=== PATIENT | male | born 1980 | race Caucasian/White ===

== ENCOUNTER → 2019-10-04 08:19 | Outpatient (BNVA) | payer OTHER, SELFPAY | PROVIDERS: Referring Provider Speech-Language Pathologist; Visit Provider Anesthesiology Pain Medicine | DX: M51.36 Other intervertebral disc degeneration, lumbar region (principal); M47.816 Spondylosis without myelopathy or radiculopathy, lumbar region; M62.830 Muscle spasm of back; Z79.891 Long term (current) use of opiate analgesic | CPT/HCPCS: 99204; 99999 ==

== ENCOUNTER → 2019-10-06 12:08 | Outpatient (BNVA) | payer OTHER, SELFPAY | PROVIDERS: Visit Provider Anesthesiology Pain Medicine | DX: M47.816 Spondylosis without myelopathy or radiculopathy, lumbar region (principal) | CPT/HCPCS: 64493; 64494; 64495; 64520; J2001; J3490 ==

== ENCOUNTER → 2019-10-25 10:56 | Outpatient (BNVA) | payer OTHER, SELFPAY | PROVIDERS: Visit Provider Anesthesiology Pain Medicine | DX: M51.36 Other intervertebral disc degeneration, lumbar region (principal); M47.816 Spondylosis without myelopathy or radiculopathy, lumbar region; M62.830 Muscle spasm of back; Z79.891 Long term (current) use of opiate analgesic | CPT/HCPCS: 99213; 99214 ==

== ENCOUNTER → 2019-12-05 12:20 | Outpatient (BNVA) | payer OTHER, SELFPAY | PROVIDERS: Visit Provider Anesthesiology Pain Medicine | DX: M47.816 Spondylosis without myelopathy or radiculopathy, lumbar region (principal); M54.9 Dorsalgia, unspecified | CPT/HCPCS: 64635; 64636; 77003; J1030; J2001 ==

== ENCOUNTER → 2019-12-21 13:32 | Outpatient (BNVA) | payer OTHER, SELFPAY | PROVIDERS: Visit Provider Anesthesiology Pain Medicine | DX: M51.36 Other intervertebral disc degeneration, lumbar region (principal); M47.816 Spondylosis without myelopathy or radiculopathy, lumbar region; M54.9 Dorsalgia, unspecified; M62.830 Muscle spasm of back; Z79.891 Long term (current) use of opiate analgesic | CPT/HCPCS: 99213 ==

== ENCOUNTER → 2019-12-30 14:12 | Outpatient (BNVA) | payer OTHER, SELFPAY | PROVIDERS: Visit Provider Anesthesiology Pain Medicine | DX: M47.816 Spondylosis without myelopathy or radiculopathy, lumbar region (principal); M54.9 Dorsalgia, unspecified; Z79.891 Long term (current) use of opiate analgesic | CPT/HCPCS: 64635; 64636; 77003; J1030; J2001 ==

== ENCOUNTER → 2020-01-13 14:50 | Outpatient (BNVA) | payer OTHER, SELFPAY | PROVIDERS: Visit Provider Anesthesiology Pain Medicine | DX: M47.816 Spondylosis without myelopathy or radiculopathy, lumbar region (principal); M51.36 Other intervertebral disc degeneration, lumbar region; M54.9 Dorsalgia, unspecified; M62.830 Muscle spasm of back; F17.210 Nicotine dependence, cigarettes, uncomplicated; Z79.891 Long term (current) use of opiate analgesic | CPT/HCPCS: 99213 ==

== ENCOUNTER 2020-12-10 07:14 | Outpatient (CLI) | payer OTHER, SELFPAY ==
--- NOTE | 2020-12-10 07:00 | XRR_ITS ---
PROCEDURE INFORMATION: Exam: XR Abdomen Exam date and time: 12/10/2020 7:22 AM Age: 40 years old Clinical indication: Condition or disease; Kidney or ureter condition; Calculus (stone) in kidney; Prior surgery; Surgery type: Hernia; Additional info: N20.0 - calculus of kidney TECHNIQUE: Imaging protocol: XR of the abdomen. Views: Frontal supine view of the abdomen. 1 View. COMPARISON: CT abdomen pelvis con [id number] 12/02/2020 11:45 PM FINDINGS: Gastrointestinal tract: Normal. No bowel dilation. Organs: Right UVJ stone identified on abdomen CT, is not clearly visualized in the current examination. Bones/joints: Unremarkable. XR/XR KUB [id number] IMPRESSION: Right UVJ stone identified on abdomen CT in is not seen in the current examination.
== END 2020-12-10 07:15 | disposition home or self-care (01) ==
PROVIDERS: PCP Nurse Practitioner Family; Visit Provider Urology
DX: N20.0 Calculus of kidney (principal)
CPT/HCPCS: 74018; 81003; 82365; 88300

== ENCOUNTER 2021-10-29 08:08 | Outpatient (CLI) | payer OTHER, SELFPAY ==
--- NOTE | 2021-10-29 08:00 | USCV_ITS ---
Real Simpson Age: 41 Gender: M : 1980 Exam Date: 10/29/2021 08:34 Ordering Phys: Nathaly Morales MD ([email or web address]) Technologist: Graham Bennett Exam Location: [facility] [place] Indication: Dizziness and gidiness BP: 128 / 78 HR: 57 Rhythm: Sinus Technical Quality: Adequate MEASUREMENTS (Male / Female) Normal Values 2D ECHO LV Diastolic Diameter PLAX 5.0 cm 4.2 - 5.9 / 3.9 - 5.3 cm LV Systolic Diameter PLAX 3.8 cm IVS Diastolic Thickness 1.1 cm 0.6 - 1.0 / 0.6 - 0.9 cm IVS Systolic Thickness 1.4 cm LVPW Diastolic Thickness 1.2 cm 0.6 - 1.0 / 0.6 - 0.9 cm LVPW Systolic Thickness 1.8 cm LVOT Diameter 2.3 cm LV Ejection Fraction 2D Teich 48.0 % LV Ejection Fraction MOD 2C 53.1 % LV Ejection Fraction 2C AL 54.9 % LA Diameter 3.3 cm LA Width 3.6 cm LA Height 3.7 cm RA Width 4.2 cm RA Height 4.2 cm Aorta at Sinotubular Diameter 2.6 cm M-MODE Aortic Annulus Diameter 3.6 cm LA Ao Ratio MM 0.8 MV E Point Septal Separation 1.1 cm DOPPLER AV Peak Velocity 97.0 cm/s LVOT Peak Velocity 71.0 cm/s AV Area Cont Eq vti 2.9 cm squared AV Area Cont Eq pk 2.9 cm squared MV Area PHT 2.7 cm squared Mitral E to A Ratio 0.9 MV E' Velocity 25.5 cm/s Mitral E to MV E' Ratio 5.3 Mitral E to LV E' Lateral Ratio 6.0 Mitral E to LV E' Septal Ratio 4.7 TR Peak Velocity 260.4 cm/s TR Peak Gradient 27.1 mmHg TR Mean Velocity 227.6 cm/s TR Mean Gradient 20.9 mmHg TR Velocity Time Integral 72.1 cm Right Atrial Pressure 3.0 mmHg Pulmonary Artery Systolic Pressu 30.1 mmHg RV Acceleration Time 0.1 s RV Ejection Time 0.3 s RV AcT/ET 0.5 FINDINGS Left Ventricle Normal left ventricular size, systolic function and wall thickness, with no regional wall motion abnormalities. Left ventricular ejection fraction is estimated at 60 %. Normal diastolic function. Right Ventricle Normal right ventricular size and systolic function. RVSP could not be calculated due to incomplete tricuspid regurgitation velocity profile. Right Atrium Normal right atrial size. Left Atrium Normal left atrial size. Mitral Valve Mildly thickened mitral valve. Mild bowing of bilateral mitral valve leaflet without significant prolapse. No mitral valve stenosis. Trace mitral valve regurgitation. Aortic Valve Structurally normal trileaflet aortic valve. No aortic valve stenosis. No aortic valve regurgitation. Tricuspid Valve Structurally normal tricuspid valve. No tricuspid valve stenosis. Trace tricuspid valve regurgitation. Pulmonic Valve Structurally normal pulmonic valve. No pulmonary valve stenosis. Trace pulmonary valve regurgitation. Pericardium No pericardial effusion. Aorta Normal size aortic root and proximal ascending aorta. CONCLUSIONS 1. Normal left ventricular size, systolic function and wall thickness, with no regional wall motion abnormalities. Left ventricular ejection fraction is estimated at 60 %. Normal diastolic function. 2. Normal right ventricular size and systolic function. 3. Mildly thickened mitral valve. Mild bowing of bilateral mitral valve leaflet without significant prolapse. Trace mitral valve regurgitation. 4. No prior similar studies to compare. Nathaly Morales MD (Electronically Signed) Final Date: 30 October 2021 17:59 S
== END 2021-10-29 08:09 | disposition home or self-care (01) ==
LOC: RAD 08:09
PROVIDERS: PCP Nurse Practitioner Family; Visit Provider Internal Medicine Cardiovascular Disease
DX: R42 Dizziness and giddiness (principal); I34.0 Nonrheumatic mitral (valve) insufficiency
CPT/HCPCS: 93306

== ENCOUNTER → 2022-01-14 14:12 | Outpatient (BNVA) | payer OTHER, SELFPAY | PROVIDERS: PCP Nurse Practitioner Family; Visit Provider Internal Medicine Cardiovascular Disease | DX: R55 Syncope and collapse (principal); I10 Essential (primary) hypertension; R42 Dizziness and giddiness; M51.36 Other intervertebral disc degeneration, lumbar region; M62.830 Muscle spasm of back; F17.200 Nicotine dependence, unspecified, uncomplicated | CPT/HCPCS: 99213; 99214 ==

== ENCOUNTER 2023-02-21 11:07 | Emergency (ER) | payer OTHER, SELFPAY ==
--- NOTE | 2023-02-21 11:13 | ED_ITS ---
HPI - Back Pain/Injury General: Chief Complaint: Back Pain/Injury Stated Complaint: back pain, surgery 1.5 weeks ago Time Seen by Provider: 02/21/23 11:13 History of Present Illness: Mr. Simpson is a 42-year-old gentleman with complex history of back injury and back surgery approximately 6 months ago presenting to the emergency department for evaluation of back pain. He notes approximately 1-1/2 weeks ago lifting and feeling a pop though did not initially have significant pain. Since that time he said increased pain mostly on the low back in the right low back region with radiation down the right leg. Denies associated weakness. No saddle anesthesia. No change inability to control bowel or bladder. He has tried lidocaine patches without significant improvement. Moderate to severe intensity symptoms. Course has worsened. No other specific changes in health, exacerba ting, or alleviating factors identified. Onset (ago): day(s) Timing: progressively worsening Severity: severe Similar Symptoms Previously: Yes Exacerbating factors: movement Context: while lifting Treatments prior to arrival: other Review of Systems General: Reports: 10 or more systems reviewed and unremarkable except in HPI and below PFSH ED PFSH: Medical History DDD (degenerative disc disease) HTN (hypertension) Right ureteral calculus Urolithiasis Surgical History H/O circumcision H/O hand surgery H/O hernia repair H/O vasectomy History of back surgery RFA lumbar Family History Other CAD (coronary artery disease) CHF (congestive heart failure) Diabetes Hypertension Lung disease Social History Smoking and tobacco status: current some day smoker Alcohol intake: current Alcohol intake frequency: holidays/special occasions only Substance/Drug Use: current Household members: spouse Marital status: service: Yes (medically discharged) Current occupational status: employed Physical Exam Const: COMMON NORMALS: alert GENERAL APPEARANCE: cooperative and well developed HENMT: COMMON NORMALS: normocephalic and atraumatic HEAD & SCALP: normocephalic and atraumatic Eye: COMMON NORMALS: conjunctivae normal CONJUNCTIVA: Yes conjunctivae normal SCLERA: sclerae normal Neck/C-Spine: COMMON NORMALS: supple GENERAL: Yes trachea midline Resp: COMMON NORMALS: clear to auscultation bilaterally EFFORT & INSPECTION: Yes able to speak in complete sentences AUSCULTATION: clear to auscultation bilaterally Cardio: COMMON NORMALS: regular rate and regular rhythm RATE: regular rate RHYTHM: regular rhythm Back/Pelvis: OTHER: Surgical incision appears well-healed. No evidence of overlying skin changes. Lumbar midline and right paraspinal tenderness to palpation. Extremity: GENERAL: Yes normal exam except as noted and No edema Neuro: COMMON NORMALS: moves all extremities SENSORIUM/ORIENTATION: Yes alert and No Orientation impaired Psych: COMMON NORMALS: mental status grossly normal and Normal thought process present THOUGHT PROCESS: Normal thought process present Course Vital Signs: Vital signs: Vital Signs Temperature 98.7 F 02/21/23 13:23 Pulse Rate 88 02/21/23 13:23 Respiratory Rate 18 02/21/23 13:23 Blood Pressure 145/104 02/21/23 13:23 Pulse Oximetry 97 02/21/23 13:23 Oxygen Delivery Me thod Room Air 02/21/23 11:17 MDM - Back Pain/Injury Medical Decision Making 42-year-old gentleman with history of back surgery presenting due to pain. Exam as above. No weakness, saddle anesthesia, bowel or bladder issues. Nontoxic in appearance. No UTI. X-ray negative for acute pathology generation noted. Patient mildly improved with analgesia. Also given steroids. Muscle relaxation was not particularly effective with Valium. The results of ED evaluation were discussed with the patient including prescriptions and/or symptomatic cares (if applicable) including appropriate and responsible use, followup plan, and return precautions. The patient verbalized understanding and felt safe for discharge. Medical Records I reviewed the patient's medical records. Labs I reviewed the patient's lab results. Radiology Impressions Lumbar Spine X-Ray 02/21/23 11:24 IMPRESSION: Mild L5-S1 disc degeneration. Laboratory Results Urine Color Straw (Yellow) 02/21/23 11:30 Urine Appearance Clear (CLEAR) 02/21/23 11:30 Urine pH 7 (5-7) 02/21/23 11:30 Ur Specific [place] 1.010 (1.005-1.030) 02/21/23 11:30 Urine Protein Neg (Negative) 02/21/23 11:30 Urine Glucose (UA) Norm (Normal) 02/21/23 11:30 Urine Ketones Negative (Negative) 02/21/23 11:30 Urine Blood Neg (Negative) 02/21/23 11:30 Urine Nitrate Negative (Negative) 02/21/23 11:30 Urine Bilirubin Neg (Negative) 02/21/23 11:30 Urine Urobilinogen Norm mg/dL (Negative) 02/21/23 11:30 Ur Leukocyte Esterase Negative (Negative) 02/21/23 11:30 Discharge Plan Discharge Patient Disposition: Home Clinical Impression: Acute exacerbation of chronic low back pain Condition: Stable Prescriptions: New hydrocodone-acetaminophen 5-325 mg tablet 1 tab PO Q4H PRN (Reason: pain) Qty: 30 0RF No Action sertraline 50 mg tablet 50 mg PO DAILY quetiapine 50 mg tablet 50 mg PO BEDTIME clonazepam 0.5 mg tablet 0.5 mg PO DAILY PRN (Reason: Anxiety) lidocaine 5 % adhesive patch,medicated 1 patch TOPICAL DAILY PRN (Reason: back pain) Rx Instructions: leave on most painful area for up to 12 hrs gabapentin 100 mg capsule 100 mg PO BID amlodipine 2.5 mg tablet 2.5 mg PO DAILY Qty: 30 6RF Motrin IB 200 mg Tablet 400 mg PO Q6H PRN (Reason: Pain) Discharge Orders: Discharge ED (Routine); Ordered 02/21/23 Ordered By: Woody Carrasco Referrals: Mike Mosqueda [Primary Care Provider] - Discharge Diet: Usual diet Discharge Activity: Increase activity as tolerated Patient Instructions: Acute Low Back Pain (ED), Opioid Safety Activity Restrictions/Additional Instructions: Thank you for visiting the emergency department. You were seen about a for back pain. The exact cause of your symptoms is unclear however does not appear to need hospitalization at this time. You do require follow-up and further imaging in the outpatient setting. Please contact [facility]. I will prescribe hydrocodone. Use opioids cautiously as discussed. You may use [id number] medications such as acetaminophen and ibuprofen for pain however please do not exceed the daily recommended dosage as listed on the packaging and please keep in mind that many namebrand medications contain the same active ingredients. Please avoid these medications if previously instructed to do so by another physician due to other underlying medical condition. Keep in mind that hydrocodone each tablet contains 325 mg of acetaminophen which must be accounted for in total daily dosage. Return for worsening/uncontrolled symptoms, any loss of control of bowel or bladder as discussed, extremity weakness, or anything else that you are concerned about and feel needs emergency department evaluation. Coding Level of Care Code ED Senior Medical Transcriptionist for Kaci Stoddard
[2023-02-21 11:15] VITALS: BP 167/103; PULSE 82; RESP 16; TEMP 36.6; O2SAT 98; BMI 21.9
[2023-02-21 11:17] VITALS: BP 167/103; PULSE 88; RESP 18; TEMP 37.1; O2SAT 97
--- NOTE | 2023-02-21 11:24 | XRR_ITS ---
PROCEDURE INFORMATION: Exam: XR Lumbosacral Spine Exam date and time: 02/21/2023 11:27 AM Age: 42 years old Clinical indication: Low back pain; Prior surgery; Surgery date: 1-6 months; Additional info: Low back pain, HX back surgery TECHNIQUE: Imaging protocol: Radiologic exam of the lumbosacral spine. Views: 2 or 3 views. COMPARISON: CT abdomen pelvis wo con [id number] 12/02/2020 11:45 PM FINDINGS: Bones/joints: Alignment is normal. Vertebral body height is maintained. Mild disc narrowing at L5-S1. Facet joints are unremarkable. No acute fracture. The visible portion of the pelvis and sacrum is intact. Soft tissues: Visible soft tissues are unremarkable. XR/XR lumbar spine 2-3V* [id number] IMPRESSION: Mild L5-S1 disc degeneration.
[2023-02-21] MEDS: diazePAM 5 mg Tablet PO (11:35)
[2023-02-21] MEDS: ketorolac 30 mg/mL INJ 15 MG IM (11:36)
[2023-02-21] MEDS: acetaminophen 500 mg Tablet 1000 MG PO (11:36)
--- NOTE | 2023-02-21 11:39 | PC.PHAR ---
PT VERIFIED ALL MEDICATIONS. HE NORMALLY GETS ALL MEDS FROM [facility] (CLOSED ON WEEKENDS)
[2023-02-21 11:46] LABS: Add Urine Microscopic? NO; Charge for UA Resulting for Rev
[2023-02-21 11:54] LABS: Urine Appearance Clear (CLEAR); Urine Color Straw (Yellow)
[2023-02-21 11:55] LABS: Bilirubin Urine Neg (Negative); Blood Urine Neg (Negative); Glucose Urine UA Norm (Normal); Ketones Urine Negative (Negative); Leukocyte Esterase Urine Negative (Negative); Nitrate Urine Negative (Negative); Protein Urine Neg (Negative); Urobilinogen Urine Norm (Negative); pH Urine 7 (5-7)
[2023-02-21] MEDS: lidocaine 5% Patch 1 PATCH TOPICAL (12:17)
[2023-02-21] MEDS: predniSONE 20 mg Tablet 40 MG PO (12:17)
[2023-02-21] MEDS: TRAMadol 50 mg Tablet 25 MG PO (12:18)
[2023-02-21 13:23] VITALS: BP 145/104; PULSE 88; RESP 18; TEMP 37.1; O2SAT 97
== END 2023-02-21 13:23 | disposition home or self-care (01) ==
PROVIDERS: Emergency Provider Emergency Medicine; PCP Nurse Practitioner Family
DX: M54.50 Low back pain, unspecified (principal); G89.29 Other chronic pain
CPT/HCPCS: 72100; 81003; 96372; 99284; J1885; J7512

== ENCOUNTER 2024-09-16 09:43 | Outpatient (CLI) | payer OTHER, SELFPAY ==
--- NOTE | 2024-09-16 09:52 | US_ITS ---
WS: [id number] RIGHT UPPER QUADRANT ULTRASOUND HISTORY: ELEVATED LIVER ENZYMES COMPARISON: CT 12/02/2020 Liver: 16.0 cm in length. Normal size liver and echogenicity. No bile duct dilatation or mass. Portal Vein: Normal hepatopetal flow with monophasic waveform. Gallbladder: Normally distended gallbladder with no stones or wall thickening. CBD: 0.3 cm Pancreas: Normal size and echogenicity. Right kidney: 9.8 cm in length. Normal size and echogenicity. No hydronephrosis or mass. Aorta and IVC: Unremarkable abdominal aorta and IVC. No ascites. US/US abdomen limited [id number] IMPRESSION: Normal right upper quadrant ultrasound.
== END 2024-09-16 09:44 | disposition home or self-care (01) ==
PROVIDERS: PCP Nurse Practitioner Family; Visit Provider Nurse Practitioner Adult Health
DX: Z01.89 Encounter for other specified special examinations (principal)
CPT/HCPCS: 76705

== ENCOUNTER → 2024-09-20 14:33 | Outpatient (BNVA) | payer OTHER, SELFPAY | PROVIDERS: PCP Nurse Practitioner Family; Referring Provider Nurse Practitioner Family; Visit Provider Psychiatry & Neurology Neurology | DX: R20.0 Anesthesia of skin (principal); R20.2 Paresthesia of skin; M79.632 Pain in left forearm; M79.631 Pain in right forearm | CPT/HCPCS: 95912 ==

== ENCOUNTER → 2025-04-05 08:38 | Outpatient (BNVA) | payer OTHER, SELFPAY | PROVIDERS: PCP Nurse Practitioner Family; Visit Provider Surgery | DX: D17.1 Benign lipomatous neoplasm of skin and subcutaneous tissue of trunk (principal) | CPT/HCPCS: 99203 ==